=== PATIENT | female | born 1960 | race Caucasian/White ===

== ENCOUNTER 2020-09-10 18:29 | Emergency (ER) | payer BC ==
[2020-09-10 22:18] LABS: HEMOGLOBIN 15.1 gm/dl (12.3-15.3); RED BLOOD COUNT 5.03 M/UL (4.00-5.10); WHITE BLOOD COUNT 15.3 K/UL (4.5-11.0)
[2020-09-10 22:44] LABS: BUN/CREATININE RATIO 23 (0-10)
[2020-09-11] MEDS ORDERED: PREDNISONE 50 M50 MG PO (02:34)
[2020-09-11] MEDS ORDERED: VENTOLIN HFA 66.7 GM INH (02:34)
== END 2020-09-11 02:43 | disposition home or self-care (01) ==
LOC: ER1 18:29
PROVIDERS: Physician Assistant
DX: J44.1 Chronic obstructive pulmonary disease with (acute) exacerbation (principal); I10 Essential (primary) hypertension; F17.200 Nicotine dependence, unspecified, uncomplicated; Z88.0 Allergy status to penicillin
CPT/HCPCS: 71045; 80053; 82550; 82553; 83874; 84484; 85025; 85379; 93005; 94664; 96374; 99285; J2930